=== PATIENT | female | born 1985 | race Caucasian/White ===

== ENCOUNTER 2024-06-12 15:18 | Outpatient (OUT) | payer BC, SELFPAY ==
--- NOTE | 2024-06-12 15:19 | XR_ITS ---
[place] [id number] Patient Name: ANALIA CURIEL MRN: [id number] date: 1985 Sex: F Assigned Patient Location: Current Patient Location: Accession/Order Number: [id number] Exam Date: 06/12/2024 19:08 Report Date: 06/12/2024 19:10 At the request of: VANDANA KINNEY MD Procedure: XR knee LT 4V 4 views left knee plain film with weightbearing COMPARISON: None HISTORY: Acute left knee pain ACUTE FINDINGS: No acute findings DEGENERATIVE CHANGE: Unremarkable SOFT TISSUE FINDINGS: Unremarkable JOINT EFFUSION: None POSTOP CHANGES: None BONE MINERALIZATION: Adequate XR/XR knee LT 4V IMPRESSION: Unremarkable exam Impression dictated by: Nico Corea M.D.06/12/2024 7:10 PM Dictation Location: [place] [id number] Electronically authenticated by: [id number] Y Date: 06/12/2024 19:10
== END 2024-06-12 15:19 | disposition home or self-care (01) ==
LOC: EC 15:18
PROVIDERS: Visit Provider Student in an Organized Health Care Education/Training Program
DX: M25.562 Pain in left knee (principal)
CPT/HCPCS: 73564

== ENCOUNTER 2024-07-21 18:57 | Emergency (ER) | payer BC, SELFPAY ==
[2024-07-21] VITALS (9 sets, daily range): BP systolic 103–154; BP diastolic 72–90; PULSE 65–86; TEMP 36.8; O2SAT 96–100; BMI 35.2
--- NOTE | 2024-07-21 19:25 | PC.NURSE ---
took Ibuprofen twice today for pain, no relief with Ibuprofen, pt c/o nausea
--- NOTE | 2024-07-21 19:42 | ECG_ITS ---
[facility] Test Date: 2024-07-21 Pat Name: ANALIA CURIEL Department: Room: - Gender: Female [employer]: : 1985 Requested By: [id number] Order Number: [id number] Reading MD: YOHANA AIKEN M.D. Measurements Intervals [place] Rate: 77 P: 55 TX: 126 QRS: 57 QRSD: 86 T: 46 QT: 370 QTc: 402 Interpretive Statements 1100 Sinus rhythm 9110 normal ECG No previous ECG available for comparison Electronically Signed On 07-23-2024 7:33:42 EDT by YOHANA AIKEN M.D.
[2024-07-21] MEDS: KETOROLAC TROMETHAMINE 30 MG/ML VIAL IVP (19:59)
[2024-07-21] MEDS: ONDANSETRON PF 4 MG/2 ML VIAL IV (19:59)
[2024-07-21 20:15] LABS: Hematocrit 44.6 % (36.0-48.0); Hemoglobin 14.5 g/dL (12.0-16.0); Mean Corpuscular HGB Conc 32.5 g/dL (29.9-35.2); Mean Corpuscular Hemoglobin 28.3 pg (26.7-34.0); Mean Corpuscular Volume 87.1 fL (81.0-99.0); Mean Platelet Volume 10.6 fL (9.5-13.5); Platelet Count 386 10^3/uL (150-450); Red Blood Count 5.12 10^6/uL (4.20-5.40); Red Cell Distribution Width 13.6 % (11.0-15.0); White Blood Count 13.9 10^3/uL (4.0-11.0)
[2024-07-21 20:27] LABS: D Dimer 0.27 mg/L FEU (<=0.59); INR 0.94
[2024-07-21 20:30] LABS: Alanine Aminotransferase 17 U/L (14-59); Albumin Level 3.6 g/dL (3.4-5.0); Alkaline Phosphatase 77 U/L (46-116); Anion Gap 15.6; Aspartate Amino Transferase 13 U/L (15-37); BUN Creatinine Ratio 15.1; Bilirubin Total 0.4 mg/dL (0.2-1.0); Calcium 9.1 mg/dL (8.5-10.1); Carbon Dioxide 27.1 mmol/L (21.0-32.0); Chloride 101 mmol/L (98-107); Estimated GFR (African America >60 (>=60 mL/min/1.73m^2); Estimated GFR (Non-African Ame >60 (>=60 mL/min/1.73m^2); Globulin 3.6 g/dL; Glucose 108 mg/dL (74-106); Potassium 3.7 mmol/L (3.5-5.1); Sodium 140 mmol/L (136-145); Total Protein 7.2 g/dL (6.4-8.2); Troponin I High Sensitivity <4.0 pg/mL (4.0-51.3)
[2024-07-21 20:38] LABS: Eosinophils Absolute Manual 0.13 10^3/uL (0.00-0.70); Lymphocytes Absolute Manual 4.44 10^3/uL (1.20-3.80); Monocytes Absolute Manual 0.69 10^3/uL (0.30-0.80); Segmented Neut Absolute Manual 8.61 10^3/uL (1.4-6.5)
--- NOTE | 2024-07-21 20:50 | ED.CHESTPAI1 ---
Documented by User: Cecilia Espinoza 07/21/24 20:54 HPI - Chest Pain General Chief Complaint: Chest Pain Stated Complaint: Chest Pain Time Seen by Provider: 07/21/24 19:26 Source: patient Mode of arrival: walk-in Limitations: no limitations History of Present Illness HPI narrative: 38-year-old female presents here with chief complaint of chest pain while she was doing dishes radiating to her back. She states she immediately got anxious and then vomited. She presented here to the emergency room with nausea and vomiting. Chest pain had somewhat resolved. She states she was nervous because she has a history of heart problems in the family. She says she was slightly short of breath. Lung sounds are clear throughout she is not hypoxic or tachycardic upon arrival. No fevers. Related Data Home Medications ?Medication ?Instructions ?Recorded ?Confirmed terbinafine HCl 250 mg tablet mg 07/21/24 tirzepatide (weight loss) 12.5 12.5 mg subcut QWEEK 07/21/24 07/21/24 mg/0.5 mL subcutaneous pen injector Allergies Allergy/AdvReac Type Severity Reaction Status Date / Time No Known Drug Allergies Allergy Verified 07/21/24 19:15 Review of Systems ROS Status of ROS 10 or more systems reviewed and unremarkable except as noted in history and below PFSH PFSH Social History Little interest or pleasure in doing things: not at all Feeling down, depressed, or hopeless: not at all Exam Narrative Exam Narrative: All Systems are negative except as noted/marked.All systems reviewed and otherwise negative Nurses note and vital signs reviewed and patient is not hypoxic. General: The patient appears well and in no apparent distress. Patient is resting comfortably on cart. Skin: Warm, dry, no pallor noted. There is no rash noted. Head: Normocephalic, atraumatic Eye: Normal conjunctiva, no drainage, EOMI. PERRL Ears, Nose, Mouth, and Throat: oral mucosa is moist. Nares patent. Mouth without vesicles. Ear canals patent. Tm's without Erythema Cardiovascular: Regular Rate and Rhythm Respiratory: Patient is in no distress, no accessory muscle use, lungs are clear to auscultation, no wheezing, rales or rhonchi Back: non-tender, no CVA tenderness bilaterally to percussion. GI: Normal bowel sounds, no tenderness to palpation, no masses appreciated. No rebound, guarding, or rigidity noted. Musculoskeletal: The patient has no evidence of calf tenderness, no pitting edema, symmetrical pulses noted bilaterally Neurological: A&O x4, normal speech Psychiatric: Cooperative Constitutional Vital Signs, click to edit/add: Last Vital Signs Temp 98.3 F 07/21/24 19:12 Pulse 68 07/21/24 20:21 Resp 16 07/21/24 20:21 BP 114/72 07/21/24 20:21 Pulse Ox 98 07/21/24 20:21 O2 Del Method Room Air 07/21/24 20:21 Course Vital Signs Vital signs: Vital Signs Temperature 98.3 F 07/21/24 19:12 Pulse Rate 85 07/21/24 19:12 Respiratory Rate 18 07/21/24 19:12 Blood Pressure 154/90 H 07/21/24 19:12 Pulse Oximetry 100 07/21/24 19:12 Oxygen Delivery Method Room Air 07/21/24 19:12 Temperature 98.3 F 07/21/24 19:12 Pulse Rate 68 07/21/24 20:21 Respiratory Rate 16 07/21/24 20:21 Blood Pressure 114/72 07/21/24 20:21 Pulse Oximetry 98 07/21/24 20:21 Oxygen Delivery Method Room Air 07/21/24 20:21 MDM - Chest Pain MDM Narrative Medical decision making narrative: 38-year-old female presents here with chief complaint of chest pain while she was doing dishes radiating to her back. She states she immediately got anxious and then vomited. She presented here to the emergency room with nausea and vomiting. Chest pain had somewhat resolved. She states she was nervous because she has a history of heart problems in the family. She says she was slightly short of breath. Lung sounds are clear throughout she is not hypoxic or tachycardic upon arrival. No fevers. Sudden onset of chest wall pain that radiated to her back. It has since subsided with Zofran and Toradol. Patient ekg, chest x-ray reviewed. Patient's troponin and D-dimer are negative. Mildly elevated white blood cell count. She has no fever. Her symptoms have subsided. Patient had chest wall pain that has subsided. I believe she then had a small panic attack causing her to have elevated blood pressure and nausea. Patient is comfortable at this time she was able to walk to x-ray department and throughout the department without any pain or nausea or shortness of breath. We discharged home diagnosis of chest wall pain Differential Diagnosis Differential diagnosis: Likely other (chest wall pain) Medical Records Data Attestation: I reviewed the patient's medical records. Lab Data Attestation: I reviewed the patient's lab results. Labs: Lab Results 07/21/24 Range/Units 19:22 WBC 13.9 H (4.0-11.0) 10^3/uL RBC 5.12 (4.20-5.40) 10^6/uL Hgb 14.5 (12.0-16.0) g/dL Hct 44.6 (36.0-48.0) % MCV 87.1 (81.0-99.0) fL MCH 28.3 (26.7-34.0) pg MCHC 32.5 (29.9-35.2) g/dL RDW 13.6 (11.0-15.0) % Plt Count 386 (150-450) 10^3/uL MPV 10.6 (9.5-13.5) fL Seg Neuts % (Manual) 62.0 (43.0-75.0) Lymphocytes % (Manual) 32.0 (20.5-60.0) % Monocytes % (Manual) 5.0 (1.7-12.0) % Eosinophils % (Manual) 1.0 (0.9-7.0) % Basophils % (Manual) 0.0 L (0.2-2.0) % Neutrophils # (Manual) 8.61 H (1.4-6.5) 10^3/uL Lymphocytes # (Manual) 4.44 H (1.20-3.80) 10^3/uL Monocytes # (Manual) 0.69 (0.30-0.80) 10^3/uL Eosinophils # (Manual) 0.13 (0.00-0.70) 10^3/uL Basophils # (Manual) 0.00 (0.00-0.10) 10^3/uL PT 10.0 (9.0-11.6) sec INR 0.94 D-Dimer 0.27 (<=0.59) mg/L FEU Sodium 140 (136-145) mmol/L Potassium 3.7 (3.5-5.1) mmol/L Chloride 101 (98-107) mmol/L Carbon Dioxide 27.1 (21.0-32.0) mmol/L Anion Gap 15.6 BUN 13.0 (7.0-18.0) mg/dL Creatinine 0.86 (0.55-1.02) mg/dL Est GFR ( Amer) >60 (>=60 mL/min/1.73m^2) Est GFR (Non-Af Amer) >60 (>=60 mL/min/1.73m^2) BUN/Creatinine Ratio 15.1 Glucose 108 H (74-106) mg/dL Calcium 9.1 (8.5-10.1) mg/dL Total Bilirubin 0.4 (0.2-1.0) mg/dL AST 13 L (15-37) U/L ALT 17 (14-59) U/L Alkaline Phosphatase 77 (46-116) U/L Troponin I High Sens <4.0 L (4.0-51.3) pg/mL NT-Pro-B Natriuret Pep 50.0 (<=450.0) pg/mL Total Protein 7.2 (6.4-8.2) g/dL Albumin 3.6 (3.4-5.0) g/dL Globulin 3.6 g/dL Albumin/Globulin Ratio 1.0 Imaging Data Chest x-ray: My impression: nad, no pneumothorax ECG Data Interpretation: 1920 rhythm with a rate of 77 bpm [place] interval 100 for 6 ms QRS duration [address] elevation or depression. No STEMI Discharge Plan Discharge Chief Complaint: Chest Pain Clinical Impression: Chest wall pain Patient Disposition: Home, Self-Care Time of Disposition Decision: 20:50 Condition: Good Prescriptions / Home Meds: No Action terbinafine HCl 250 mg tablet tirzepatide (weight loss) 12.5 mg/0.5 mL pen injector 12.5 mg subcut QWEEK Print Language: Palauan Instructions: Chest Wall Pain (ED) Referrals: Physician,Non-Staff, MD [Primary Care Provider] - 1 week Discharge Date/Time: 07/21/24 21:01 Documented by User: Gracy Moran DO 07/23/24 02:41 HPI - Chest Pain General Chief Complaint: Chest Pain Stated Complaint: Chest Pain Time Seen by Provider: 07/21/24 19:26 Related Data On Oral Contraceptives: No Home Medications ?Medication ?Instructions ?Recorded ?Confirmed terbinafine HCl 250 mg tablet mg 07/21/24 tirzepatide (weight loss) 12.5 12.5 mg subcut QWEEK 07/21/24 07/21/24 mg/0.5 mL subcutaneous pen injector Allergies Allergy/AdvReac Type Severity Reaction Status Date / Time No Known Drug Allergies Allergy Verified 07/21/24 19:15 PFSH PFSH Social History Little interest or pleasure in doing things: not at all Feeling down, depressed, or hopeless: not at all Exam Constitutional Vital Signs, click to edit/add: Last Vital Signs Temp 98.3 F 07/21/24 19:12 Pulse 68 07/21/24 20:21 Resp 16 07/21/24 20:21 BP 114/72 07/21/24 20:21 Pulse Ox 98 07/21/24 20:21 O2 Del Method Room Air 07/21/24 20:21 Course Vital Signs Vital signs: Vital Signs Temperature 98.3 F 07/21/24 19:12 Pulse Rate 85 07/21/24 19:12 Respiratory Rate 18 07/21/24 19:12 Blood Pressure 154/90 H 07/21/24 19:12 Pulse Oximetry 100 07/21/24 19:12 Oxygen Delivery Method Room Air 07/21/24 19:12 Temperature 98.3 F 07/21/24 19:12 Pulse Rate 68 07/21/24 20:21 Respiratory Rate 16 07/21/24 20:21 Blood Pressure 114/72 07/21/24 20:21 Pulse Oximetry 98 07/21/24 20:21 Oxygen Delivery Method Room Air 05/02/25 20:21 MDM - Chest Pain Lab Data Labs: Lab Results 07/21/24 Range/Units 19:22 WBC 13.9 H (4.0-11.0) 10^3/uL RBC 5.12 (4.20-5.40) 10^6/uL Hgb 14.5 (12.0-16.0) g/dL Hct 44.6 (36.0-48.0) % MCV 87.1 (81.0-99.0) fL MCH 28.3 (26.7-34.0) pg MCHC 32.5 (29.9-35.2) g/dL RDW 13.6 (11.0-15.0) % Plt Count 386 (150-450) 10^3/uL MPV 10.6 (9.5-13.5) fL Seg Neuts % (Manual) 62.0 (43.0-75.0) Lymphocytes % (Manual) 32.0 (20.5-60.0) % Monocytes % (Manual) 5.0 (1.7-12.0) % Eosinophils % (Manual) 1.0 (0.9-7.0) % Basophils % (Manual) 0.0 L (0.2-2.0) % Neutrophils # (Manual) 8.61 H (1.4-6.5) 10^3/uL Lymphocytes # (Manual) 4.44 H (1.20-3.80) 10^3/uL Monocytes # (Manual) 0.69 (0.30-0.80) 10^3/uL Eosinophils # (Manual) 0.13 (0.00-0.70) 10^3/uL Basophils # (Manual) 0.00 (0.00-0.10) 10^3/uL PT 10.0 (9.0-11.6) sec INR 0.94 D-Dimer 0.27 (<=0.59) mg/L FEU Sodium 140 (136-145) mmol/L Potassium 3.7 (3.5-5.1) mmol/L Chloride 101 (98-107) mmol/L Carbon Dioxide 27.1 (21.0-32.0) mmol/L Anion Gap 15.6 BUN 13.0 (7.0-18.0) mg/dL Creatinine 0.86 (0.55-1.02) mg/dL Est GFR ( Amer) >60 (>=60 mL/min/1.73m^2) Est GFR (Non-Af Amer) >60 (>=60 mL/min/1.73m^2) BUN/Creatinine Ratio 15.1 Glucose 108 H (74-106) mg/dL Calcium 9.1 (8.5-10.1) mg/dL Total Bilirubin 0.4 (0.2-1.0) mg/dL AST 13 L (15-37) U/L ALT 17 (14-59) U/L Alkaline Phosphatase 77 (46-116) U/L Troponin I High Sens <4.0 L (4.0-51.3) pg/mL NT-Pro-B Natriuret Pep 50.0 (<=450.0) pg/mL Total Protein 7.2 (6.4-8.2) g/dL Albumin 3.6 (3.4-5.0) g/dL Globulin 3.6 g/dL Albumin/Globulin Ratio 1.0 Discharge Plan Discharge Chief Complaint: Chest Pain Clinical Impression: Chest wall pain Patient Disposition: Home, Self-Care Time of Disposition Decision: 20:50 Condition: Good Prescriptions / Home Meds: No Action terbinafine HCl 250 mg tablet tirzepatide (weight loss) 12.5 mg/0.5 mL pen injector 12.5 mg subcut QWEEK Print Language: Palauan Instructions: Chest Wall Pain (ED) Referrals: Physician,Non-Staff, MD [Primary Care Provider] - 1 week Discharge Date/Time: 07/21/24 21:01
== END 2024-07-21 21:01 | disposition home or self-care (01) ==
PROVIDERS: Physician Assistant; Emergency Provider Emergency Medicine
DX: R07.89 Other chest pain (principal); R06.02 Shortness of breath
CPT/HCPCS: 36415; 71046; 80053; 83880; 84484; 85007; 85027; 85378; 85610; 93005; 96374; 96375; 99285; J1885; J2405